=== PATIENT | male | born 1930 | race Caucasian/White ===

== ENCOUNTER 2017-06-17 11:01 | Inpatient (IN) | payer MEDICARE ==
[2017-06-17 11:23] LABS: VBG BASE EXCESS -1.8 (-2.0-2.0); VBG CARBOXYHEMOGLOBIN 3.8 % T HGB (0.0-6.9); VBG HCO3- 23.1 meq/L (22-28); VBG HEMOGLOBIN 10.9; VBG O2 SATURATION 76.6 (95-100); VBG POTASSIUM 4.6 (3.5-5.1); VBG pH 7.38 (7.32-7.42)
[2017-06-17 11:27] LABS: Mean Cell Volume 94.1 fl (78-100); Mean Corpuscular Hemoglobin 30.9 pg (26-32); Mean Platelet Volume 10.9 fl (6-9.5); Platelet Count 168 K/mm3 (150-450); Red Blood Count 3.39 M/mm3 (4.1-5.6); Red Cell Distribution Width 13.3 % (11.5-14.0); White Blood Count 11.2 K/mm3 (4.0-10.5)
--- NOTE | 2017-06-17 11:37 | ERPHSYRPT ---
- History of Present Illness Time Seen by Provider: 06/17/17 11:11 Source: family (brother who is next of kin), EMS, correction records Patient Subjective Stated Complaint: PT BROUGHT TO ED PER EMS [facility]POR[facility] PT WAS STANDING UP-HAD EPISODE OF INCONTENCE ET BEGAN DROOLING FROM MOUTH-REPORTS PT HAS HX OF [id number]-REPORTS PT HAS BEEN IN HIS NORM SINCE INCIDENT-EMS ACCU CHECK OF 122-MMM REPORTS INCIDENT HAPPENED MOHAMUD 1010 Triage Nursing Assessment: PT ARRIVED TO ED PALE WARM ET DRY-ANSWERING TO HIS NAME-UNABLE TO ANSWER MOST QUESTIONS-HAND CONCRETE BATCHING PLANT OPERATOR EQUAL-UNABLE TO FOLLOW COMMAND FOR FOOT PUSHES-PT FOLLOWING MOST SIMPLE COMMANDS Physician History: CC: altered mental status Hx: 87 y/o patient of Dr Corrales from [facility]. He was in shower and had episode of unresponsiveness. No seizure noted. No fall or injury as staff with him. Occurred 10:10 this AM. He is a little better now. He has prior hx of stroke. He is SCO and brother states no rescucitation desired. Pt unable to give hx. Timing/Duration: today Allergies/Adverse Reactions: Penicillins Allergy (Verified 06/17/17 11:25) Home Medications: Aspirin 81 gm Chew [Baby Aspirin 81 mg Chew] 81 mg PO DAILY 06/17/17 [ History] Clopidogrel Bisulfate 75 mg [PLAVIX 75 MG Tablet] 75 mg PO DAILY 06/17/17 [History] Levothyroxine Sodium 50 Mcg [Synthroid 50 Mcg] 50 mcg PO DAILY 06/17/17 [ History] Lubiprostone [Amitiza] 8 mcg PO DAILY 06/17/17 [History] Hx Tetanus, Diphtheria Vaccination/Date Given: No Hx Influenza Vaccination/Date Given: Yes (2015) Hx Pneumococcal Vaccination/Date Given: Yes Immunizations Up to Date: No - Review of Systems Constitutional: No Fever Abdominal/Gastrointestinal: No Vomiting All Other Systems: Unable due to condition - Past Medical History Pertinent Past Medical History: Yes Neurological History: Alzheimer's Disease, Dementia, Stroke, TIA ENT History: No Pertinent History Cardiac History: Coronary Artery Disease, High Cholesterol, Hypertension, Other Respiratory History: No Pertinent History Endocrine Medical History: No Pertinent History, Hypothyroidism Musculoskeletal History: No Pertinent History GI Medical History: Irritable Bowel Psycho-Social History: No Pertinent History Male Reproductive Disorders: Prostate Problems Other Medical History: enlarged prostate, atherosclerotic heart disease of [place] coronary artery without angina pectoris - Past Surgical History Past Surgical History: Yes Neuro Surgical History: No Pertinent History Cardiac: Cardiac Catheterization, Cardiac Stent Respiratory: No Pertinent History Gastrointestinal: Hemorrhoidectomy Genitourinary: No Pertinent History Musculoskeletal: No Pertinent History Male Surgical History: No Pertinent History - Social History Smoking Status: Former smoker Exposure to second hand smoke: No Drug Use: none Patient Lives Alone: No - Nursing Vital Signs Nursing Vital Signs: Initial Vital Signs Temperature 98.3 F 06/17/17 11:11 Pulse Rate 84 06/17/17 11:11 Respiratory Rate 20 06/17/17 11:11 Blood Pressure 118/91 06/17/17 11:11 O2 Sat by Pulse Oximetry 96 06/17/17 11:11 Pain Scale Pain Intensity 0 - Physical Exam General Appearance: alert Eye Exam: other (PERRL) Ears, Nose, Throat Exam: dry mucous membranes Neck Exam: supple Respiratory Exam: diminished breath sounds Cardiovascular Exam: regular rate/rhythm Gastrointestinal/Abdomen Exam: soft, No tenderness, No distention Male Genitalia Exam: normal genitalia Extremity Exam: pedal edema (trace) Neurologic Exam: alert, other (follows simple commands such as sticking out tongue, squeezing hands. ) Skin Exam: warm, dry SpO2 Interpretation: normal SpO2: 96 Oxygen Delivery: Room Air - Course Nursing assessment & vital signs reviewed: Yes EKG Interpreted by Me: RATE (82), Sinus Rhythm, NORMAL AXIS, NORMAL INTERVALS ( QTc 428), Non-specific ST Changes - Radiology Exams cxr X-ray Interpretation: Teleradiologist Report (stable non acute) - CT Exams brain CT Interpretation: Tele-radiologist Report (nonacute senile brain, right posterior fossa cyst, mild right maxillary sinus disease) Ordered Tests: Active Orders 24 hr Category Date Time Status Accucheck STAT Care 06/17/17 11:14 Active Geospatial Information Technologist STAT Care 06/17/17 11:15 Active Cath for Specimen-Straight STAT Care 06/17/17 11:15 Active EKG-ER Only STAT Care 06/17/17 11:12 Active IV Insertion STAT Care 06/17/17 11:12 Active IV Insertion-2nd Peripheral STAT Care 06/17/17 11:14 Active NPO (ED) STAT Care 06/17/17 11:12 Active Pulse Oximetry (ED) STAT Care 06/17/17 11:14 Active CHEST 1 VIEW (PORTABLE) Stat Exams 06/17/17 11:12 Completed HEAD WITHOUT CONTRAST [CT] Stat Exams 06/17/17 11:15 Completed CBC W DIFF Stat Lab 06/17/17 11:00 Completed CMP Stat Lab 06/17/17 11:00 Completed Lactic Acid Stat Lab 06/17/17 11:14 Completed Manual Differential NC Stat Lab 06/17/17 11:00 Completed Occult Blood,Stool Other Stat Lab 06/17/17 12:30 Completed PROTIME WITH INR Stat Lab 06/17/17 11:00 Completed PTT Stat Lab 06/17/17 11:00 Completed TROPONIN Q3H Lab 06/17/17 11:00 Completed TROPONIN Q3H Lab 06/17/17 14:15 Ordered TROPONIN Q3H Lab 06/17/17 17:15 Ordered TROPONIN Q3H Lab 06/17/17 20:15 Ordered TROPONIN Q3H Lab 06/17/17 23:15 Ordered UA W/ MICROSCOPIC Stat Lab 06/17/17 12:15 Completed VENOUS BLOOD GAS Urgent Lab 06/17/17 11:14 Completed Lab/Rad Data: Laboratory Result Diagrams 06/17/17 11:00 06/17/17 11:00 Laboratory Results 06/17/17 06/17/17 06/17/17 Range/Units 12:30 12:15 11:14 WBC (4.0-10.5) K/mm3 RBC (4.1-5.6) M/mm3 Hgb (12.5-18.0) gm/dl Hct (42-50) % MCV (78-100) fl MCH (26-32) pg MCHC (32-36) g/dl RDW (11.5-14.0) % Plt Count (150-450) K/mm3 MPV (6-9.5) fl Segmented Neutrophils (36.-66.) % Band Neutrophils (0.0-2.0) % Lymphocytes (Manual) (24-44) % Monocytes (Manual) (0.0-12.0) % Eosinophils (Manual) (0.00-3.0) % Differential Comment Platelet Estimate (NORMAL) Polychromasia Macrocytosis Ovalocytes INR (0.8-3.0) APTT (24.1-36.1) SECONDS VBG pH 7.38 (7.32-7.42) VBG pCO2 at Pat Temp 39 L (42-55) mm/Hg VBG pO2 at Pat Temp 38 (25-40) mm/Hg VBG HCO3 23.1 (22-28) meq/L VBG O2 Sat (Kym) 76.6 L (95-100) VBG Base Excess -1.8 (-2.0-2.0) VBG Hemoglobin 10.9 VBG Carboxyhemoglobin 3.8 (0.0-6.9) % T HGB POC Potassium 4.6 (3.5-5.1) Sodium (136-145) mEq/L Potassium (3.5-5.1) mEq/L Chloride (98-107) mEq/L Carbon Dioxide (21-32) mEq/L Anion Gap (5-15) MEQ/L BUN (9-20) mg/dL Creatinine (0.55-1.30) mg/dl Estimated GFR ML/MIN Glucose (70-110) MG/DL Lactic Acid (0.4-2.0) Calcium (8.5-10.1) mg/dL Total Bilirubin (0.2-1.0) mg/dL AST (15-37) U/L ALT (12-78) U/L Alkaline Phosphatase (46-116) U/L Troponin I (0.000-0.056) ng/ml Serum Total Protein (6.4-8.2) gm/dL Albumin (3.4-5.0) g/dL Ur Collection Type CATH Urine Color LT.YELLOW (YELLOW) Urine Appearance CLEAR (CLEAR) Urine pH 5.0 (5-6) Ur Specific Gable 1.020 (1.005-1.025) Urine Protein NEGATIVE (Negative) Urine Ketones SMALL (NEGATIVE) Urine Blood NEGATIVE (0-5) Familia/ul Urine Nitrite NEGATIVE (NEGATIVE) Urine Bilirubin NEGATIVE (NEGATIVE) Urine Urobilinogen NORMAL (0-1) mg/dL Ur Leukocyte Esterase NEGATIVE (NEGATIVE) Urine Microscopic WBC 0-2 (0-5) /HPF Ur Epithelial Cells FEW (FEW) /HPF Urine Bacteria FEW (NEGATIVE) /HPF Urine Glucose NEGATIVE (NEGATIVE) mg/dL Stool Occult Blood NEGATIVE (Negative) Specimen Received 06/17/17 1215 06/17/17 06/17/17 06/17/17 Range/Units 11:14 11:00 11:00 WBC (4.0-10.5) K/mm3 RBC (4.1-5.6) M/mm3 Hgb (12.5-18.0) gm/dl Hct (42-50) % MCV (78-100) fl MCH (26-32) pg MCHC (32-36) g/dl RDW (11.5-14.0) % Plt Count (150-450) K/mm3 MPV (6-9.5) fl Segmented Neutrophils (36.-66.) % Band Neutrophils (0.0-2.0) % Lymphocytes (Manual) (24-44) % Monocytes (Manual) (0.0-12.0) % Eosinophils (Manual) (0.00-3.0) % Differential Comment Platelet Estimate (NORMAL) Polychromasia Macrocytosis Ovalocytes INR 1.11 (0.8-3.0) APTT 25.2 (24.1-36.1) SECONDS VBG pH (7.32-7.42) VBG pCO2 at Pat Temp (42-55) mm/Hg VBG pO2 at Pat Temp (25-40) mm/Hg VBG HCO3 (22-28) meq/L VBG O2 Sat (Kym) (95-100) VBG Base Excess (-2.0-2.0) VBG Hemoglobin VBG Carboxyhemoglobin (0.0-6.9) % T HGB POC Potassium (3.5-5.1) Sodium (136-145) mEq/L Potassium (3.5-5.1) mEq/L Chloride (98-107) mEq/L Carbon Dioxide (21-32) mEq/L Anion Gap (5-15) MEQ/L BUN (9-20) mg/dL Creatinine (0.55-1.30) mg/dl Estimated GFR ML/MIN Glucose (70-110) MG/DL Lactic Acid 1.6 (0.4-2.0) Calcium (8.5-10.1) mg/dL Total Bilirubin (0.2-1.0) mg/dL AST (15-37) U/L ALT (12-78) U/L Alkaline Phosphatase (46-116) U/L Troponin I < 0.017 (0.000-0.056) ng/ml Serum Total Protein (6.4-8.2) gm/dL Albumin (3.4-5.0) g/dL Ur Collection Type Urine Color (YELLOW) Urine Appearance (CLEAR) Urine pH (5-6) Ur Specific Gable (1.005-1.025) Urine Protein (Negative) Urine Ketones (NEGATIVE) Urine Blood (0-5) Familia/ul Urine Nitrite (NEGATIVE) Urine Bilirubin (NEGATIVE) Urine Urobilinogen (0-1) mg/dL Ur Leukocyte Esterase (NEGATIVE) Urine Microscopic WBC (0-5) /HPF Ur Epithelial Cells (FEW) /HPF Urine Bacteria (NEGATIVE) /HPF Urine Glucose (NEGATIVE) mg/dL Stool Occult Blood (Negative) Specimen Received 06/17/17 06/17/17 Range/Units 11:00 11:00 WBC 11.2 H (4.0-10.5) K/mm3 RBC 3.39 L (4.1-5.6) M/mm3 Hgb 10.5 L (12.5-18.0) gm/dl Hct 31.9 L (42-50) % MCV 94.1 (78-100) fl MCH 30.9 (26-32) pg MCHC 32.9 (32-36) g/dl RDW 13.3 (11.5-14.0) % Plt Count 168 (150-450) K/mm3 MPV 10.9 H (6-9.5) fl Segmented Neutrophils 48 (36.-66.) % Band Neutrophils 3 H (0.0-2.0) % Lymphocytes (Manual) 43 (24-44) % Monocytes (Manual) 4 (0.0-12.0) % Eosinophils (Manual) 2 (0.00-3.0) % Differential Comment ABNORMAL Platelet Estimate NORMAL (NORMAL) Polychromasia 1+ Macrocytosis RARE Ovalocytes 1+ INR (0.8-3.0) APTT (24.1-36.1) SECONDS VBG pH (7.32-7.42) VBG pCO2 at Pat Temp (42-55) mm/Hg VBG pO2 at Pat Temp (25-40) mm/Hg VBG HCO3 (22-28) meq/L VBG O2 Sat (Kym) (95-100) VBG Base Excess (-2.0-2.0) VBG Hemoglobin VBG Carboxyhemoglobin (0.0-6.9) % T HGB POC Potassium (3.5-5.1) Sodium 140 (136-145) mEq/L Potassium 4.6 (3.5-5.1) mEq/L Chloride 107 (98-107) mEq/L Carbon Dioxide 23.0 (21-32) mEq/L Anion Gap 14.2 (5-15) MEQ/L BUN 64 H (9-20) mg/dL Creatinine 0.96 (0.55-1.30) mg/dl Estimated GFR > 60 ML/MIN Glucose 120 H (70-110) MG/DL Lactic Acid (0.4-2.0) Calcium 8.9 (8.5-10.1) mg/dL Total Bilirubin 0.60 (0.2-1.0) mg/dL AST 12 L (15-37) U/L ALT 19 (12-78) U/L Alkaline Phosphatase 87 (46-116) U/L Troponin I (0.000-0.056) ng/ml Serum Total Protein 6.1 L (6.4-8.2) gm/dL Albumin 3.5 (3.4-5.0) g/dL Ur Collection Type Urine Color (YELLOW) Urine Appearance (CLEAR) Urine pH (5-6) Ur Specific Gable (1.005-1.025) Urine Protein (Negative) Urine Ketones (NEGATIVE) Urine Blood (0-5) Familia/ul Urine Nitrite (NEGATIVE) Urine Bilirubin (NEGATIVE) Urine Urobilinogen (0-1) mg/dL Ur Leukocyte Esterase (NEGATIVE) Urine Microscopic WBC (0-5) /HPF Ur Epithelial Cells (FEW) /HPF Urine Bacteria (NEGATIVE) /HPF Urine Glucose (NEGATIVE) mg/dL Stool Occult Blood (Negative) Specimen Received - Progress Progress Note: 06/17/17 12:49 Pt stable. Afebrile. Normal BP. Unsure etiology. Called Dr Corrales and will place in obs for IVF and recheck labs in AM. Discussed with : Edel Will see patient in: hospital (observation) Counseled pt/family regarding: lab results, diagnosis, need for follow-up, rad results - Departure Time of Disposition: 12:50 Departure Disposition: Observation Clinical Impression: Altered mental status, Dehydration, Azotemia, Dementia Condition: Fair Critical Care Time: No Referrals: GREG CORRALES [Primary Care Provider] -
[2017-06-17 11:40] LABS: INR 1.11 (0.8-3.0); PROTIME 12.6 SECONDS (8.83-12.87)
[2017-06-17 11:43] LABS: PTT 25.2 SECONDS (24.1-36.1)
[2017-06-17 11:49] LABS: BAND 3 % (0.0-2.0); Eosinophil 2 % (0.00-3.0); Macrocytosis RARE; Ovalocytes 1+; Platelet Estimate NORMAL (NORMAL); Polychromasia 1+; Total Cells Counted 100
[2017-06-17 11:50] LABS: ALBUMIN 3.5 g/dL (3.4-5.0); ALKALINE PHOSPHATASE 87 U/L (46-116); ANION GAP 14.2 MEQ/L (5-15); BLOOD UREA NITROGEN 64 mg/dL (9-20); CHLORIDE 107 mEq/L (98-107); Glucose 120 MG/DL (70-110); Potassium 4.6 mEq/L (3.5-5.1); SGOT/AST 12 U/L (15-37); SGPT/ALT 19 U/L (12-78); SODIUM 140 mEq/L (136-145); Total Protein 6.1 gm/dL (6.4-8.2)
--- NOTE | 2017-06-17 12:01 | XRAY ---
Indication: Altered mental status. Multiple contiguous axial images obtained through the head without contrast. Comparison: December 12, 2015. Stable age-appropriate global atrophy, mild periventricular degenerative micro-ischemia, and right paramedian posterior fossa arachnoid cyst. No acute intracranial hemorrhage, abnormal extra-axial fluid collection, or mass effect. Fourth ventricle is midline. Osseous structures intact with again old nasal bone fractures. There is now mild mucosal thickening of the visualized right maxillary sinus. Remaining visualized paranasal sinuses and mastoid air cells are pneumatized and clear. Impression: Stable nonacute senile brain with again right posterior fossa arachnoid cyst. Mild right maxillary sinus disease. CTDI 68.32
--- NOTE | 2017-06-17 12:04 | XRAY ---
Indication: Altered mental status. Comparison: December 12, 2015. Portable chest remains clear again with incidental calcified granulomas. Heart is not enlarged for AP portable technique. Vascularity normal. Bony thorax intact again with osteopenia and degenerative changes. Impression: Stable nonacute chest with chronic features.
[2017-06-17 12:37] LABS: Collection Type CATH; Glucose NEGATIVE (NEGATIVE); Leukocyte Esterase NEGATIVE (NEGATIVE)
[2017-06-17 12:38] LABS: Bacteria FEW /HPF (NEGATIVE); Bilirubin NEGATIVE (NEGATIVE); Blood NEGATIVE Ery/ul (0-5); COMPLETE URINE MICROSCOPIC? YES; Epithelial Cells FEW /HPF (FEW); WBC 0-2 /HPF (0-5)
[2017-06-17 12:39] LABS: ADD URINE CULTURE? NO (NO)
[2017-06-17] MEDS ORDERED: Pepcid 20 MG VIAL IV ONE ×2 (12:48→12:54)
[2017-06-17] MEDS ORDERED: Lactated Ringers 1,000 ML IV ONE ×2 (12:54→17:25)
[2017-06-17] MEDS: Lactated Ringers 1,000 ML IV SCH ×2 (13:00→23:09)
[2017-06-17] MEDS ORDERED: MILK OF MAGNESIA 30 ML PO PRN (15:25)
[2017-06-17] MEDS ORDERED: MEDICATION INTERVENTION MC PRN (15:54)
--- NOTE | 2017-06-17 17:36 | PCM.HP ---
History of Present Illness - Chief Complaint Chief Complaint: Altered mental status Date: 06/17/17 History of Present Illness: is a 87 year old male. with history of previous stroke that per review of records was affecting left side however he had full recovery from this in the past. He does suffer from mild to moderate dementia and lives in [facility] but usually ambulates on his own , feeds himself and communicates well. He was weak and fatigued this am and collapsed in the shower and nursing staff sent to ED this am. He denies any headache, chest pain, shortness of breath, or abdominal pain but history is limited by his mental status. - Review of Systems Constitutional: Other (per HPI otherwise limited by menal status) Medications & Allergies Home Medications: Home Medication List Acetaminophen 325 mg [Tylenol 325 mg] 650 mg PO Q4HPRN PRN 06/17/17 [ History Confirmed 06/17/17] Aspirin EC 81 mg [Ecotrin 81 mg] 81 mg PO DAILY 06/17/17 [History Confirmed 06/17/17] Clopidogrel Bisulfate 75 mg [PLAVIX 75 MG Tablet] 75 mg PO DAILY 06/17/17 [History Confirmed 06/17/17] Levothyroxine Sodium 50 Mcg [Synthroid 50 Mcg] 50 mcg PO DAILY 06/17/17 [ History Confirmed 06/17/17] Lubiprostone [Amitiza] 8 mcg PO DAILY 06/17/17 [History Confirmed 06/17/17] Magnesium Hydroxide 30 ml [Milk of Magnesia 30 ml] 30 ml PO DAILY PRN PRN 06/17/17 [History Confirmed 06/17/17] Magnesium Oxide 400 mg [Mag-Ox 400] 400 mg PO HS 06/17/17 [History Confirmed 06/17/17] Simvastatin 20Mg [Zocor 20Mg] 20 mg PO QPM 06/17/17 [History Confirmed 06/17] Tamsulosin HCl 0.4 mg [Flomax 0.4 MG] 0.4 mg PO HS 06/17/17 [History Confirmed 06/17/17] Allergies/Adverse Reactions: Allergies Allergy/AdvReac Type Severity Reaction Status Date / Time Penicillins Allergy Verified 06/17/17 11:25 - Past Medical History Past Medical History: Yes Neurological History: Alzheimer's Disease, Dementia, Stroke, TIA ENT History: No Pertinent History Cardiac History: Coronary Artery Disease, High Cholesterol, Hypertension, Other Respiratory History: No Pertinent History Endocrine Medical History: No Pertinent History, Hypothyroidism Musculoskelatal History: No Pertinent History GI Medical History: Irritable Bowel Pyscho-Social History: No Pertinent History Male Reproductive Disorders: Prostate Problems Comment: enlarged prostate, atherosclerotic heart disease of [place] coronary artery without angina pectoris - Past Surgical History Past Surgical History: Yes Neuro Surgical History: No Pertinent History Cardiac History: Cardiac Catheterization, Cardiac Stent Respiratory Surgery: No Pertinent History GI Surgical History: Hemorrhoidectomy Genitourinary Surgical Hx: No Pertinent History Musculskeletal Surgical Hx: No Pertinent History Male Surgical History: No Pertinent History - Social History Smoking Status: Never smoker Exposure to second hand smoke: No Alcohol: None Drug Use: none - Physical Exam Vital Signs: Vital Signs - 24 hr Temp Pulse Resp BP Pulse Ox 06/17/17 16:00 98.4 F 60 18 130/60 97 06/17/17 13:43 98.4 F 70 20 140/65 99 06/17/17 12:50 96 06/17/17 12:47 98.2 F 70 14 116/58 97 06/17/17 12:00 75 12 111/62 06/17/17 11:57 75 20 111/62 98 06/17/17 11:32 96 06/17/17 11:11 98.3 F 84 20 118/91 96 General Appearance: no apparent distress Neurologic Exam: other (he has waxing and waning mental status slurred speech and drowsy falls asleep it appears during exam he is slow to follow commands and is able to only follow simple commands he has equal movement bilaterally but has mild left hemineglect it appears he does not have facial droop and no pronater drift he has 2 beats of clonus on the left and the left toe is upgoing right has normal reflexes and toe is downgoing bilateral upper extremity reflexes difficult to test as moving on the exam), No alert (oriented to person and time not place) Eye Exam: PERRL/EOMI, pale conjunctivae, No scleral icterus Ears, Nose, Throat Exam: dry mucous membranes Neck Exam: non-tender, supple Respiratory Exam: normal breath sounds, lungs clear Cardiovascular Exam: regular rate/rhythm, normal heart sounds, normal peripheral pulses, No murmur Gastrointestinal/Abdomen Exam: soft, normal bowel sounds, No tenderness, No distention Extremity Exam: normal inspection, No pedal edema Results - Labs Lab/Micro Results: Lab Results-Last 24 Hours 06/17/17 Range/Units 14:18 Troponin I < 0.017 (0.000-0.056) ng/ml Assessment/Plan (1) Stroke Current Visit: Yes Status: Acute Qualifiers: Laterality of affected vessel: right Assessment & Plan: suspected affecting the left side he does have history of old stroke affecting left side but these symptoms do seem to have progressed he is already on asa and plavix, ct no bleed, ekg NSR start tele rule out afib caused carotid and echo ordered MRI machine down and unlikely to change his clinical coarse given his previous history, age, and mild to moderate dementia symptoms are obscured by uremic encephalopathy however likely from dehydration occult blood stool was negative no evidence of upper hemorrhage start Hitchcock catheter bolus 1 L LR and start 100 mL/h repeat am labs Code(s): I63.9 - CEREBRAL INFARCTION, UNSPECIFIED (2) Uremic encephalopathy Current Visit: Yes Status: Acute Code(s): G93.41 - METABOLIC ENCEPHALOPATHY ; N19 - UNSPECIFIED KIDNEY FAILURE (3) CAD (coronary artery disease) Current Visit: Yes Status: Chronic Qualifiers: Coronary Disease-Associated Artery/Lesion type: [place] artery [place] vs. transplanted heart: [place] heart Associated angina: without angina Qualified Code(s): I25.10 - Atherosclerotic heart disease of [place] coronary artery without angina pectoris Code(s): I25.10 - ATHSCL HEART DISEASE OF [place] CORONARY ARTERY W/O ANG PCTRS (4) Hypertension Current Visit: Yes Status: Chronic Qualifiers: Hypertension type: essential hypertension Qualified Code(s): I10 - Essential (primary) hypertension Code(s): I10 - ESSENTIAL (PRIMARY) HYPERTENSION (5) Dementia Current Visit: Yes Status: Chronic Qualifiers: Dementia type: vascular dementia Dementia behavioral disturbance: without behavioral disturbance Qualified Code(s): F01.50 - Vascular dementia without behavioral disturbance Code(s): F03.90 - UNSPECIFIED DEMENTIA WITHOUT BEHAVIORAL DISTURBANCE
[2017-06-17] MEDS: Pepcid 20 MG VIAL IV SCH (23:03)
[2017-06-17] MEDS: ZOCOR 20MG PO SCH (23:03)
[2017-06-17] MEDS: MAG-OX 400 PO SCH (23:03)
[2017-06-17] MEDS: Flomax 0.4 MG PO SCH (23:03)
[2017-06-18 06:24] LABS: BASOPHIL % 0.3 % (0.0-0.4); Eosinophil % 3.7 % (0.00-5.0); Granulocytes % 60.2 % (36.0-66.0); Lymphocytes % 27.6 % (24.0-44.0); Mean Cell Volume 94.5 fl (78-100); Mean Corpuscular Hemoglobin 30.5 pg (26-32); Mean Platelet Volume 10.6 fl (6-9.5); Monocytes % 8.2 % (0.0-12.0); Platelet Count 142 K/mm3 (150-450); Red Blood Count 2.75 M/mm3 (4.1-5.6); Red Cell Distribution Width 13.4 % (11.5-14.0); White Blood Count 7.8 K/mm3 (4.0-10.5)
[2017-06-18 06:36] LABS: ANION GAP 11.3 MEQ/L (5-15); BLOOD UREA NITROGEN 35 mg/dL (9-20); CHLORIDE 107 mEq/L (98-107); Carbon Dioxide 26.8 mEq/L (21-32); Glucose 100 MG/DL (70-110); Potassium 3.8 mEq/L (3.5-5.1); SODIUM 141 mEq/L (136-145)
[2017-06-18 06:37] LABS: TROPONIN < 0.017 ng/ml (0.000-0.056)
[2017-06-18] MEDS: Lactated Ringers 1,000 ML IV SCH ×2 (08:54→17:57)
[2017-06-18] MEDS ORDERED: LUBIPROSTONE 8 MCG PO SCH (10:00)
[2017-06-18] MEDS: ECOTRIN 81 MG PO SCH (10:27)
[2017-06-18] MEDS: PLAVIX 75 MG Tablet PO SCH (10:27)
[2017-06-18] MEDS: SYNTHROID 50 MCG PO SCH (10:27)
[2017-06-18] MEDS: ENOXAPARIN SODIUM SQ SCH (10:27)
[2017-06-18] MEDS: Pepcid 20 MG VIAL IV SCH ×2 (10:28→22:13)
--- NOTE | 2017-06-18 14:33 | PCM.NOTE ---
Date and Time: 06/18/17 1415 Subjective Assessment: Pt does not remember why he is here, does not know where he is, does know the year is 2016, has much trouble word finding or even finishing his sentences. - Review of Systems All Other Systems: Unable due to dementia Objective Exam General Appearance: no apparent distress Neurologic Exam: other (somnolent; wakes to touch. Will start a sentence then not be able to finish it. not oriented to place; knows year is 2016 (could not answer further questions about the date)) Skin Exam: normal color, warm, dry Neck Exam: normal inspection, non-tender, No lymphadenopathy Respiratory Exam: normal breath sounds, lungs clear, No crackles/rales, No rhonchi, No wheezing Cardiovascular Exam: regular rate/rhythm, normal heart sounds, No murmur Gastrointestinal/Abdomen Exam: soft, normal bowel sounds, tenderness (possibly suprapubic tenderness; difficult to tell from pt response.) Extremity Exam: No pedal edema, No swelling OBJECTIVE DATA Vital Signs: Vital Signs - 24 hr Temp Pulse Resp BP Pulse Ox 06/18/17 12:59 97.6 F 70 20 148/76 96 06/18/17 12:00 98 F 60 20 112/66 97 06/18/17 07:24 98 F 60 20 112/66 97 06/18/17 04:00 98.3 F 55 L 18 109/56 96 06/18/17 00:00 97.9 F 54 L 20 151/67 95 06/17/17 20:00 98.0 F 61 24 132/65 97 06/17/17 16:00 98.4 F 60 18 130/60 97 Pain Assessment - Last Documented Pain Scale Used 0-10 Pain Scale,FLACC Intake and Output: Intake & Output 06/16/17 06/17/17 06/18/17 06/19/17 11:59 11:59 11:59 11:59 Intake Total 1641 Balance 1641 Weight 78.613 kg Lab Results: Lab Results-Last 24 Hours 06/17/17 06/18/17 06/18/17 Range/Units 14:18 05:30 05:30 WBC 7.8 (4.0-10.5) K/mm3 RBC 2.75 L (4.1-5.6) M/mm3 Hgb 8.4 L (12.5-18.0) gm/dl Hct 26.0 L (42-50) % MCV 94.5 (78-100) fl MCH 30.5 (26-32) pg MCHC 32.3 (32-36) g/dl RDW 13.4 (11.5-14.0) % Plt Count 142 L (150-450) K/mm3 MPV 10.6 H (6-9.5) fl Gran % 60.2 (36.0-66.0) % Lymphocytes % 27.6 (24.0-44.0) % Monocytes % 8.2 (0.0-12.0) % Eosinophils % 3.7 (0.00-5.0) % Basophils % 0.3 (0.0-0.4) % Basophils # 0.02 (0-0.4) Sodium 141 (136-145) mEq/L Potassium 3.8 (3.5-5.1) mEq/L Chloride 107 (98-107) mEq/L Carbon Dioxide 26.8 (21-32) mEq/L Anion Gap 11.3 (5-15) MEQ/L BUN 35 H (9-20) mg/dL Creatinine 0.92 (0.55-1.30) mg/dl Estimated GFR > 60 ML/MIN Glucose 100 (70-110) MG/DL Calcium 8.5 (8.5-10.1) mg/dL Troponin I < 0.017 < 0.017 (0.000-0.056) ng/ml Radiology Exams: Radiology Procedures Category Date Time Status CAROTID BILATERAL [US] Routine Exams 06/18/17 09:00 Taken ECHO W/2D AND DOPPLER [US] Routine Exams 06/18/17 09:00 Taken Assessment/Plan (1) Altered mental status Current Visit: Yes Status: Acute Qualifiers: Altered mental status type: disorientation Qualified Code(s): R41.0 - Disorientation, unspecified Assessment & Plan: Acute change on background of chronic dementia. I think this is likely due to the CVA, with some contribution of renal encephelopathy, however the BUN is decreased today and he is still having issues. Code(s): R41.82 - ALTERED MENTAL STATUS, UNSPECIFIED (2) Stroke Current Visit: Yes Status: Acute Qualifiers: Laterality of affected vessel: right Assessment & Plan: His websphere portal architect strength is good today, but his neuro exam is limited by his mental status. Code(s): I63.9 - CEREBRAL INFARCTION, UNSPECIFIED (3) Uremic encephalopathy Current Visit: Yes Status: Acute Assessment & Plan: some improvement but still present. continue gentle hydration, recheck labs in the morning. Code(s): G93.41 - METABOLIC ENCEPHALOPATHY; N19 - UNSPECIFIED KIDNEY FAILURE (4) CAD (coronary artery disease) Current Visit: Yes Status: Chronic Qualifiers: Coronary Disease-Associated Artery/Lesion type: [place] artery [place] vs. transplanted heart: [place] heart Associated angina: without angina Qualified Code(s): I25.10 - Atherosclerotic heart disease of [place] coronary artery without angina pectoris Code(s): I25.10 - ATHSCL HEART DISEASE OF [place] CORONARY ARTERY W/O ANG PCTRS (5) Dementia Current Visit: Yes Status: Chronic Qualifiers: Dementia type: vascular dementia Dementia behavioral disturbance: without behavioral disturbance Qualified Code(s): F01.50 - Vascular dementia without behavioral disturbance Assessment & Plan: Worsened with current medical condition. Code(s): F03.90 - UNSPECIFIED DEMENTIA WITHOUT BEHAVIORAL DISTURBANCE (6) Hypertension Current Visit: Yes Status: Chronic Qualifiers: Hypertension type: essential hypertension Qualified Code(s): I10 - Essential (primary) hypertension Code(s): I10 - ESSENTIAL (PRIMARY) HYPERTENSION
[2017-06-18] MEDS: MAG-OX 400 PO SCH (22:12)
[2017-06-18] MEDS: Flomax 0.4 MG PO SCH ×2 (22:12→22:43)
[2017-06-18] MEDS: TYLENOL 325 MG PO PRN (22:13)
[2017-06-18] MEDS: ZOCOR 20MG PO SCH ×2 (22:13→22:43)
--- NOTE | 2017-06-18 22:20 | XRAY ---
Indication: Incoherent and left-sided weakness. Two-dimensional sonogram and color Doppler imaging of the carotid arteries of the neck performed. Comparison: None Examination of the right carotid circulation demonstrates stable minimal soft plaquing at the level of the bulb. PSV of the CCA is 87 cm/s. PSV of the ICA is 94 cm/s. ICA/CCA ratio is 1.1. Normal antegrade vertebral artery flow. Examination of the left carotid circulation demonstrates mild eccentric calcified plaquing at the level of the bulb slightly extending into the origin of the internal carotid artery. PSV of the CCA is 124 cm/s. PSV of the ICA is 124 cm/s. ICA/CCA ratio is 1.0. Normal antegrade vertebral artery flow. Impression: Stable minimal/mild plaquing bilaterally. Velocity measurements and ratios are again negative for hemodynamically significant flow limiting Normal bilateral antegrade vertebral artery flow.
[2017-06-19] MEDS: Lactated Ringers 1,000 ML IV SCH ×3 (03:17→23:43)
[2017-06-19 09:03] LABS: Mean Cell Volume 94.2 fl (78-100); Mean Corpuscular Hemoglobin 30.9 pg (26-32); Mean Platelet Volume 10.2 fl (6-9.5); Platelet Count 136 K/mm3 (150-450); Red Blood Count 2.75 M/mm3 (4.1-5.6); Red Cell Distribution Width 13.2 % (11.5-14.0); White Blood Count 6.5 K/mm3 (4.0-10.5)
[2017-06-19 09:31] LABS: ANION GAP 11.3 MEQ/L (5-15); BLOOD UREA NITROGEN 16 mg/dL (9-20); CHLORIDE 108 mEq/L (98-107); Glucose 105 MG/DL (70-110); Potassium 3.8 mEq/L (3.5-5.1); SODIUM 143 mEq/L (136-145)
[2017-06-19] MEDS: ENOXAPARIN SODIUM SQ SCH (10:17)
[2017-06-19] MEDS: PLAVIX 75 MG Tablet PO SCH (10:18)
[2017-06-19] MEDS: SYNTHROID 50 MCG PO SCH (10:18)
[2017-06-19] MEDS: Pepcid 20 MG VIAL IV SCH ×2 (10:18→21:21)
[2017-06-19] MEDS: ECOTRIN 81 MG PO SCH (10:18)
--- NOTE | 2017-06-19 14:38 | PCM.NOTE ---
Date and Time: 06/19/17 1433 Subjective Assessment: Pt is making no effort to feed himself, seems more disoriented, tried to climb out of bed. His brother is at bedside; he states the pt has 2 daughters, one lives out [place] and one lives in [place], so while there is no POA "I kind of take care of things." Pt has been complaining about pain on his bottom. - Review of Systems Constitutional: No Fever Objective Exam General Appearance: no apparent distress Neurologic Exam: other (somnolent, but wakes to touch. Knows the year is 2016, but not oriented to place. Sometimes says a partial sentence that makes no sense, otherwise nonverbal today.) Skin Exam: normal color, warm, dry Respiratory Exam: normal breath sounds, lungs clear, No crackles/rales, No rhonchi, No wheezing Cardiovascular Exam: regular rate/rhythm, normal heart sounds, No murmur Back Exam: other (buttocks with some erythema no open lesions) OBJECTIVE DATA Vital Signs: Vital Signs - 24 hr Temp Pulse Resp BP Pulse Ox 06/19/17 12:34 97.8 F 80 20 140/68 96 06/19/17 07:07 97.6 F 56 L 20 141/60 97 06/19/17 04:00 98.0 F 61 22 133/81 96 06/18/17 23:55 98.4 F 59 L 18 142/66 97 06/18/17 20:00 98.1 F 56 L 20 150/64 98 06/18/17 16:23 97.5 F 78 20 115/68 95 Pain Assessment - Last Documented Pain Scale Used 0-10 Pain Scale,FLACC Intake and Output: Intake & Output 06/17/17 06/18/17 06/19/17 06/20/17 11:59 11:59 11:59 11:59 Intake Total 1641 2892 Balance 1641 2892 Lab Results: Lab Results-Last 24 Hours 06/19/17 06/19/17 Range/Units 08:45 08:45 WBC 6.5 (4.0-10.5) K/mm3 RBC 2.75 L (4.1-5.6) M/mm3 Hgb 8.5 L (12.5-18.0) gm/dl Hct 25.9 L (42-50) % MCV 94.2 (78-100) fl MCH 30.9 (26-32) pg MCHC 32.8 (32-36) g/dl RDW 13.2 (11.5-14.0) % Plt Count 136 L (150-450) K/mm3 MPV 10.2 H (6-9.5) fl Sodium 143 (136-145) mEq/L Potassium 3.8 (3.5-5.1) mEq/L Chloride 108 H (98-107) mEq/L Carbon Dioxide 27.0 (21-32) mEq/L Anion Gap 11.3 (5-15) MEQ/L BUN 16 (9-20) mg/dL Creatinine 0.84 (0.55-1.30) mg/dl Estimated GFR > 60 ML/MIN Glucose 105 (70-110) MG/DL Calcium 8.7 (8.5-10.1) mg/dL Radiology Exams: Radiology Procedures Category Date Time Status CAROTID BILATERAL [US] Routine Exams 06/18/17 09:00 Completed ECHO W/2D AND DOPPLER [US] Routine Exams 06/18/17 09:00 Taken Multi-Disciplinary Progress Notes: Multi-Disciplinary Progress Notes 06/19/17 13:46 Case Management Note by Devi Mehta DISCHARGE PLAN REVIEWED. PLAN TO RETURN TO [facility] ON DISCHARGE. IMPORTANT PAPERS FROM MEDICARE IN PATIENT'S PAPERS AND IN CHART. WILL CONTINUE TO MONITOR FOR ALL D/C NEEDS. Initialized on 06/19/17 13:46 - END OF NOTE Assessment/Plan (1) Altered mental status Current Visit: Yes Status: Acute Qualifiers: Altered mental status type: disorientation Qualified Code(s): R41.0 - Disorientation, unspecified Assessment & Plan: No improvement; actually worse since I saw him yesterday. I think due to the CVA. I spoke with the brother about his prognosis, likely poor, but with his recent change in status he prefers the pt to stay here for a few days and I think this is reasonable. Code(s): R41.82 - ALTERED MENTAL STATUS, UNSPECIFIED (2) Stroke Current Visit: Yes Status: Acute Qualifiers: Laterality of affected vessel: right Code(s): I63.9 - CEREBRAL INFARCTION, UNSPECIFIED (3) Uremic encephalopathy Current Visit: Yes Status: Resolved Assessment & Plan: BUN is normal today. Code(s): G93.41 - METABOLIC ENCEPHALOPATHY; N19 - UNSPECIFIED KIDNEY FAILURE (4) CAD (coronary artery disease) Current Visit: Yes Status: Chronic Qualifiers: Coronary Disease-Associated Artery/Lesion type: [place] artery [place] vs. transplanted heart: [place] heart Associated angina: without angina Qualified Code(s): I25.10 - Atherosclerotic heart disease of [place] coronary artery without angina pectoris Code(s): I25.10 - ATHSCL HEART DISEASE OF [place] CORONARY ARTERY W/O ANG PCTRS (5) Dementia Current Visit: Yes Status: Chronic Qualifiers: Dementia type: vascular dementia Dementia behavioral disturbance: without behavioral disturbance Qualified Code(s): F01.50 - Vascular dementia without behavioral disturbance Code(s): F03.90 - UNSPECIFIED DEMENTIA WITHOUT BEHAVIORAL DISTURBANCE (6) Hypertension Current Visit: Yes Status: Chronic Qualifiers: Hypertension type: essential hypertension Qualified Code(s): I10 - Essential (primary) hypertension Code(s): I10 - ESSENTIAL (PRIMARY) HYPERTENSION (7) Anemia Current Visit: Yes Status: Acute Qualifiers: Anemia type: iron deficiency Iron deficiency anemia type: other iron deficiency Qualified Code(s): D50.8 - Other iron deficiency anemias Assessment & Plan: Hgb 8.5 this morning, no site of known bleeding, will recheck in a.m. Code(s): D64.9 - ANEMIA, UNSPECIFIED
[2017-06-19] MEDS: TYLENOL 325 MG PO PRN (16:31)
[2017-06-19] MEDS: Flomax 0.4 MG PO SCH (21:16)
[2017-06-19] MEDS: ZOCOR 20MG PO SCH (21:17)
[2017-06-19] MEDS: MAG-OX 400 PO SCH (21:17)
[2017-06-20 06:00] LABS: Mean Cell Volume 94.3 fl (78-100); Mean Corpuscular Hemoglobin 30.9 pg (26-32); Mean Platelet Volume 10.5 fl (6-9.5); Platelet Count 138 K/mm3 (150-450); Red Blood Count 2.65 M/mm3 (4.1-5.6)
[2017-06-20 06:26] LABS: ANION GAP 9.8 MEQ/L (5-15); BLOOD UREA NITROGEN 12 mg/dL (9-20); CHLORIDE 108 mEq/L (98-107); Carbon Dioxide 27.5 mEq/L (21-32); Glucose 95 MG/DL (70-110); Potassium 3.6 mEq/L (3.5-5.1); SODIUM 142 mEq/L (136-145)
[2017-06-20] MEDS: Lactated Ringers 1,000 ML IV SCH ×2 (10:18→20:41)
--- NOTE | 2017-06-20 10:28 | PCM.NOTE ---
Date and Time: 06/20/17 1025 Subjective Assessment: patient denies any specific complaints today. he is confused but cooperative and pleasant. seems diffusely weak Objective Exam General Appearance: no apparent distress Neurologic Exam: alert, motor deficits (left upper and lower extremity weaker than right but diffusely strength is diminished and patients has difficulty understanding instructions) Skin Exam: normal color, warm, dry Respiratory Exam: normal breath sounds, lungs clear, No respiratory distress Cardiovascular Exam: regular rate/rhythm, normal heart sounds Gastrointestinal/Abdomen Exam: soft, No tenderness, No mass OBJECTIVE DATA Vital Signs: Vital Signs - 24 hr Temp Pulse Resp BP Pulse Ox 06/20/17 08:00 98.3 F 55 L 19 116/56 97 06/20/17 04:00 98.2 F 54 L 19 166/79 98 06/20/17 00:00 98.7 F 58 L 20 146/73 97 06/19/17 20:00 98.6 F 69 21 160/68 98 06/19/17 16:12 97.9 F 84 20 152/80 97 06/19/17 16:00 97.8 F 80 20 140/68 96 06/19/17 12:34 97.8 F 80 20 140/68 96 Pain Assessment - Last Documented Pain Intensity 5 Pain Scale Used [facility] Intake and Output: Intake & Output 06/17/17 06/18/17 06/19/17 06/20/17 11:59 11:59 11:59 11:59 Intake Total 1641 2892 2778 Balance 1641 2892 2778 Lab Results: Lab Results-Last 24 Hours 06/20/17 06/20/17 Range/Units 05:00 05:00 WBC 6.0 (4.0-10.5) K/mm3 RBC 2.65 L (4.1-5.6) M/mm3 Hgb 8.2 L (12.5-18.0) gm/dl Hct 25.0 L (42-50) % MCV 94.3 (78-100) fl MCH 30.9 (26-32) pg MCHC 32.8 (32-36) g/dl RDW 13.0 (11.5-14.0) % Plt Count 138 L (150-450) K/mm3 MPV 10.5 H (6-9.5) fl Sodium 142 (136-145) mEq/L Potassium 3.6 (3.5-5.1) mEq/L Chloride 108 H (98-107) mEq/L Carbon Dioxide 27.5 (21-32) mEq/L Anion Gap 9.8 (5-15) MEQ/L BUN 12 (9-20) mg/dL Creatinine 0.85 (0.55-1.30) mg/dl Estimated GFR > 60 ML/MIN Glucose 95 (70-110) MG/DL Calcium 8.5 (8.5-10.1) mg/dL Multi-Disciplinary Progress Notes: Multi-Disciplinary Progress Notes 06/19/17 13:46 Case Management Note by Devi Mehta DISCHARGE PLAN REVIEWED. PLAN TO RETURN TO [facility] ON DISCHARGE. IMPORTANT PAPERS FROM MEDICARE IN PATIENT'S PAPERS AND IN CHART. WILL CONTINUE TO MONITOR FOR ALL D/C NEEDS. Initialized on 06/19/17 13:46 - END OF NOTE Assessment/Plan (1) Stroke Current Visit: Yes Status: Acute Qualifiers: Laterality of affected vessel: right Assessment & Plan: prognosis is quite poor to be able to rehab at this point. continue aspirin and plavix, PT/OT Code(s): I63.9 - CEREBRAL INFARCTION, UNSPECIFIED (2) Anemia Current Visit: Yes Status: Acute Qualifiers: Anemia type: iron deficiency Iron deficiency anemia type: other iron deficiency Qualified Code(s): D50.8 - Other iron deficiency anemias Code(s): D64.9 - ANEMIA, UNSPECIFIED (3) Dementia Current Visit: Yes Status: Chronic Qualifiers: Dementia type: vascular dementia Dementia behavioral disturbance: without behavioral disturbance Qualified Code(s): F01.50 - Vascular dementia without behavioral disturbance Code(s): F03.90 - UNSPECIFIED DEMENTIA WITHOUT BEHAVIORAL DISTURBANCE (4) Uremic encephalopathy Current Visit: Yes Status: Resolved Assessment & Plan: resolved Code(s): G93.41 - METABOLIC ENCEPHALOPATHY; N19 - UNSPECIFIED KIDNEY FAILURE
[2017-06-20] MEDS: ECOTRIN 81 MG PO SCH (10:30)
[2017-06-20] MEDS: Pepcid 20 MG VIAL IV SCH ×2 (10:30→21:22)
[2017-06-20] MEDS: ENOXAPARIN SODIUM SQ SCH (10:30)
[2017-06-20] MEDS: PLAVIX 75 MG Tablet PO SCH (10:30)
[2017-06-20] MEDS: SYNTHROID 50 MCG PO SCH (10:30)
[2017-06-20] MEDS: MAG-OX 400 PO SCH (21:22)
[2017-06-20] MEDS: ZOCOR 20MG PO SCH (21:22)
[2017-06-20] MEDS: Flomax 0.4 MG PO SCH (21:22)
[2017-06-21 07:10] VITALS: BP 181/77; PULSE 60; O2SAT 97
[2017-06-21] MEDS: Lactated Ringers 1,000 ML IV SCH (07:13)
--- NOTE | 2017-06-21 07:57 | PCM.DCORD ---
- Discharge Discharge Date: 06/21/17 Disposition: DC TO [facility] Condition: Fair Prescriptions: Continue Levothyroxine Sodium 50 Mcg [Synthroid 50 Mcg] 50 mcg PO DAILY Clopidogrel Bisulfate 75 mg [PLAVIX 75 MG Tablet] 75 mg PO DAILY Lubiprostone [Amitiza] 8 mcg PO DAILY Acetaminophen 325 mg [Tylenol 325 mg] 650 mg PO Q4HPRN PRN PRN Reason: Pain And/Or Fever Tamsulosin HCl 0.4 mg [Flomax 0.4 MG] 0.4 mg PO HS Simvastatin 20Mg [Zocor 20Mg] 20 mg PO QPM Magnesium Oxide 400 mg [Mag-Ox 400] 400 mg PO HS Aspirin EC 81 mg [Ecotrin 81 mg] 81 mg PO DAILY Magnesium Hydroxide 30 ml [Milk of Magnesia 30 ml] 30 ml PO DAILY PRN PRN PRN Reason: Constipation Follow up with: GREG CORRALES [Primary Care Provider] -
[2017-06-21] MEDS: SYNTHROID 50 MCG PO SCH (08:03)
[2017-06-21] MEDS: PLAVIX 75 MG Tablet PO SCH (08:03)
[2017-06-21] MEDS: ECOTRIN 81 MG PO SCH (08:03)
[2017-06-21] MEDS: ENOXAPARIN SODIUM SQ SCH (10:10)
[2017-06-21] MEDS: Pepcid 20 MG VIAL IV SCH (10:13)
--- NOTE | 2017-06-23 17:08 | PCM.DS ---
Discharge Summary Date of Admission: 06/17/17 17:27 Date of Discharge: 06/21/17 Admitting Physician: GREG CORRALES Primary Care Provider: GREG CORRALES Allergies Allergies Penicillins Allergy (Verified 06/17/17 11:25) Hospital Summary - Hospital Course Hospital Course: Mr. Hackett has history of stroke affecting his left side as well as vascular dementia and lives at [facility]. He was found to be more confused and weak then normal and not communicating as he usually dose and collapsed while being bathed and was sent to ED. He was found to have worsened dysarthria slow response to questions and worsened left sided weakness. He was also dehydrated and had uremic encephalopathy contributing that improved with hydration. He underwent tele monitoring, echo and carotids. He was still having difficulty with acute delirium with his chronic dementia and was otherwise improving and was discharged back to [facility]. - Vitals & Intake/Output Vital Signs: Vital Signs Temperature 97.4 F 06/21/17 07:09 Pulse Rate 60 06/21/17 07:09 Respiratory Rate 18 06/21/17 07:09 Blood Pressure 181/77 06/21/17 07:09 O2 Sat by Pulse Oximetry 97 06/21/17 07:09 Intake & Output: Intake & Output 06/21/17 06/22/17 06/23/17 06/24/17 11:59 11:59 11:59 11:59 Intake Total 2621 Output Total 200 Balance 2621 -200 - Lab Result Diagrams: 06/20/17 05:00 06/20/17 05:00 Discharge Exam General Appearance: no apparent distress Neurologic Exam: alert, cooperative, other (left sided weakness left 3+ reflexes on lle 2+ on rle left toe upgoing right down difficulty following commands slow slurred speech), No oriented x 3 Skin Exam: warm, dry Eye Exam: EOMI, No scleral icterus Ears, Nose, Throat Exam: moist mucous membranes Neck Exam: non-tender, supple Respiratory Exam: normal breath sounds, lungs clear Cardiovascular Exam: regular rate/rhythm, No murmur Gastrointestinal/Abdomen Exam: soft, normal bowel sounds, No tenderness Extremity Exam: normal inspection, No calf tenderness Final Diagnosis/Problem List - Final Discharge Diagnosis/Problem (1) Stroke Status: Acute (2) Uremic encephalopathy Status: Resolved (3) CAD (coronary artery disease) Status: Chronic (4) Hypertension Status: Chronic (5) Dementia Status: Chronic - Discharge Discharge Date: 06/21/17 Disposition: DC TO [facility] Condition: Fair Prescriptions: Continue Levothyroxine Sodium 50 Mcg [Synthroid 50 Mcg] 50 mcg PO DAILY Clopidogrel Bisulfate 75 mg [PLAVIX 75 MG Tablet] 75 mg PO DAILY Lubiprostone [Amitiza] 8 mcg PO DAILY Acetaminophen 325 mg [Tylenol 325 mg] 650 mg PO Q4HPRN PRN PRN Reason: Pain And/Or Fever Tamsulosin HCl 0.4 mg [Flomax 0.4 MG] 0.4 mg PO HS Simvastatin 20Mg [Zocor 20Mg] 20 mg PO QPM Magnesium Oxide 400 mg [Mag-Ox 400] 400 mg PO HS Aspirin EC 81 mg [Ecotrin 81 mg] 81 mg PO DAILY Magnesium Hydroxide 30 ml [Milk of Magnesia 30 ml] 30 ml PO DAILY PRN PRN PRN Reason: Constipation Follow up with: GREG CORRALES [Primary Care Provider] -
--- NOTE | 2017-06-24 07:29 | ECHO ---
Transthoracic echocardiographic examination and color Doppler was done on 06/18/2017. INDICATION: Stroke. IMPRESSION: 1) NO REGIONAL WALL MOTION ABNORMALITY. ESTIMATED GLOBAL LEFT VENTRICULAR EJECTION FRACTION OF AROUND 60%. 2) TRACE MITRAL REGURGITATION. 3) MILD AORTIC REGURGITATION. 4) TRACE TRICUSPID REGURGITATION. RIGHT VENTRICULAR SYSTOLIC PRESSURE OF 35 MM OF [place]CUR[place]. 5) LEFT VENTRICULAR HYPERTROPHY. 6) LEFT VENTRICULAR DIASTOLIC DYSFUNCTION. The left ventricle is visualized and demonstrated adequate motion of all the segments. Estimated global left ventricular ejection fraction around 60%. There is mild left ventricular hypertrophy. The mitral valve is seen and this opens adequately. There is trace mitral regurgitation. Left atrium is normal. The aortic valve is sclerotic. There is mild aortic regurgitation. The right side chambers are normal. There is trace tricuspid regurgitation. The right ventricular systolic pressure of 35 mm of [place]. Tissue Doppler study of the lateral mitral annulus suggestive of left ventricular diastolic dysfunction.
== END 2017-06-21 11:40 | DRG 64 ==
LOC: ED 11:01 → MED SURG 13:20 → OBSVTOIN 17:27
PROVIDERS: ADMIT Family Medicine; ATTEND Family Medicine
DX: I63.9 Cerebral infarction, unspecified (principal); G93.41 Metabolic encephalopathy; Z86.73 Personal history of transient ischemic attack (TIA), and cerebral infarction without residual deficits; I25.10 Atherosclerotic heart disease of native coronary artery without angina pectoris; I10 Essential (primary) hypertension; F01.50 Vascular dementia, unspecified severity, without behavioral disturbance, psychotic disturbance, mood disturbance, and anxiety; N40.0 Benign prostatic hyperplasia without lower urinary tract symptoms; E03.9 Hypothyroidism, unspecified; N19 Unspecified kidney failure; R41.82 Altered mental status, unspecified; D50.8 Other iron deficiency anemias
CPT/HCPCS: 36000; 36415; 70450; 71010; 80048; 80053; 81000; 82272; 82805; 82962; 83605; 84484; 85025; 85027; 85610; 85730; 93005; 93041; 93268; 93306; 93880; 96360; 96374; 99285; J1650; P9612; A9270-GY